=== PATIENT | male | born 1965 | race Caucasian/White ===

== ENCOUNTER 2023-06-09 15:43 | Emergency (ER) | payer OTHER, SELFPAY ==
[2023-06-09 15:52] VITALS: BP 138/92; PULSE 110; RESP 26; TEMP 36.8; O2SAT 92
--- NOTE | 2023-06-09 15:59 | ECG_ITS ---
Measurements Intervals [place] Rate: 106 P: 85 SD: 128 QRS: -81 QRSD: 89 T: 66 QT: 333 QTc: 442 Interpretive Statements SINUS TACHYCARDIA POSSIBLE RIGHT VENTRICULAR CONDUCTION DELAY [RSR (QR) IN V1/V2] LEFT ANTERIOR FASCICULAR BLOCK [QRS AXIS <= -45, QR IN I, RS IN II] NO PREVIOUS ECG AVAILABLE FOR COMPARISON Electronically Signed On 06-09-2023 16:43:53 COUPLES THERAPIST by Erich Larson M.D.
--- NOTE | 2023-06-09 17:16 | PC.NURSE ---
at 1650 spoke with MD dumas about if protocol labs were needed, and MD Dumas stated not until MD lawrence in room.
--- NOTE | 2023-06-09 17:34 | PC.NURSE ---
patient came to desk stating he was going to leave. advised to come back to ER if symptoms get worse.
== END 2023-06-09 18:01 | disposition left against medical advice (07) ==
LOC: ANHED 17:39
PROVIDERS: Emergency Provider Emergency Medicine
DX: R06.02 Shortness of breath (principal)
CPT/HCPCS: 93005; 99199

== ENCOUNTER 2024-09-06 22:04 | Emergency (ER) | payer MEDICAID, SELFPAY ==
--- NOTE | ~2024-09-06 | XR_ITS ---
XR chest 1V portable Ordering provider: Silas Thomas PA-C History: 59 years Male with . CP, SOB . Comparison: July 06, 2024 FINDINGS: MEDIASTINUM: The cardiac silhouette is not enlarged. LUNGS: No infiltrates, effusions or pneumothorax. OTHER: No free air under the diaphragm. IMPRESSION: No acute cardiopulmonary pathology. Reviewed, dictated and finalized at location A.
--- NOTE | 2024-09-06 22:08 | ECG_ITS ---
Test Date: 2024-09-06 22:12:05 Measurements Intervals [place] Rate: 86 P: 78 ND: 158 QRS: -42 QRSD: 94 T: 59 QT: 349 QTc: 418 Interpretive Statements SINUS RHYTHM MARKED LEFT AXIS DEVIATION [QRS AXIS < -30] LOW QRS VOLTAGE [QRS DEFLECTION < 0.5/1.0 mV IN LIMB/CHEST LEADS] ANTEROSEPTAL MYOCARDIAL INFARCTION , PROBABLY RECENT [40+ ms Q WAVE IN V1-V4] ACUTE DE Compared to ECG 07/06/2024 15:18:22 Left-axis deviation now present Myocardial infarct finding still present Electronically Signed On 09-07-2024 14:05:40 CDT by Bucky Plaza M.D.
[2024-09-06 22:09] VITALS: BP 113/90; PULSE 83; RESP 17; TEMP 36.4; O2SAT 100
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
[2024-09-06 22:28] VITALS: O2SAT 100
[2024-09-06 22:30] VITALS: PULSE 82
[2024-09-06 22:30] LABS: Basophils Absolute Auto 0.1 K/mm3 (0.0-0.1); Basophils Percent Auto 0.5 % (0.2-1.2); Eosinophils Absolute Auto 0.2 K/mm3 (0-0.3); Eosinophils Percent Auto 1.6 % (0-4.4); Hemoglobin 11.8 g/dL (14.0-18.0); Immature Granulocyte Absolute 0.05 K/mm3 (0.00-0.031); Immature Granulocyte Percent A 0.5 % (0-0.5); Lymphocytes Absolute Auto 1.77 K/mm3 (0.9-3.2); Mean Corpuscular HGB Conc 30.3 g/dl (32-36); Mean Corpuscular Hemoglobin 24.5 pg (26-34); Mean Corpuscular Volume 81.1 fl (80-100); Mean Platelet Volume 7.9 fl (7.4-10.4); Monocytes Absolute Auto 0.6 K/mm3 (0.1-0.6); Monocytes Percent Auto 5.7 % (2.6-8.5); Neutrophils Absolute Auto 8.4 K/mm3 (1.3-6.7); Neutrophils Percent Auto 75.7 % (45.5-73.1); Platelet Count Result 553 k/mm3 (150-375); Red Blood Count 4.81 M/mm3 (4.6-6.20); Red Cell Distribution Width 14.6 % (11.5-14.5); White Blood Count 11.1 K/mm3 (4.5-10.0)
[2024-09-06] MEDS: ONDANSETRON INJ 4 MG/2 ML VIAL IV PUSH (22:36)
[2024-09-06] MEDS: HYDROmorphone HCL INJ (*CRX) 1 MG/ML SYR 0.5 MG IV PUSH (22:36)
[2024-09-06 22:48] LABS: INR 1.1; Prothrombin Time 14.6 Seconds (11.1-14.7)
[2024-09-06 22:49] LABS: Partial Thromboplastin Time 28.6 Seconds (22.3-36.8)
[2024-09-06 23:49] LABS: Alanine Aminotransferase 21 U/L (6-50); Albumin Level 4.1 g/dL (3.5-5.1); Alkaline Phosphatase 100 U/L (38-126); Anion Gap 13 mmol/L (4-12); Aspartate Amino Transferase 27 U/L (17-59); Bilirubin,Total 0.4 mg/dL (0.2-1.3); Blood Urea Nitrogen 20 mg/dL (9-20); Calcium 9.4 mg/dL (8.4-10.2); Carbon Dioxide 24 mmol/L (22-30); Chloride 104 mmol/L (98-107); Estimated CRCL calculation 60 ml/min; Estimated Glomerular Filt Rate > 60; Glucose 85 mg/dL (65-110); Lipase 35 U/L (23-300); Potassium 4.1 mmol/L (3.4-5.0); Sodium 141 mmol/L (137-145)
[2024-09-07 00:02] LABS: Troponin I < 0.012 ng/mL (0.000-0.034)
--- OUTSIDE RECORDS SUMMARY | 2024-09-07 00:02 | XMS_ITS | Clinical Summary ---
Author Organization [facility] Address [facility] [place] [address] Care Team Providers Care Project Coach Name Role Phone None, Provider MD Primary Care Provider Unavaila ble Allergies No known active allergies Medications ipratropium-alb uterol 0.5-2.5 (3) MG/3ML Solution Take 3 mLs by nebulization every 6 (six) hours as needed. 12 mL 2 Active albuterol sulfate HFA 108 (90 Base) MCG/ACT inhaler Inhale 2 puffs into the lungs every 6 (six) hours as needed for Wheezing. 8 g 2 Active Active Problems Problem Noted Date Diagnosed Date COPD exacerbation ([facility]) 09/30/2021 Family History Medical History Relation Comments Stroke Father Cancer Mother Relation Status Comments Father Mother Social History Tobacco Use Types Packs/Day Years Used Date Smoking Tobacco: Every Day Cigarettes Smokeless Tobacco: Never Tobacco Cessation:Ready to Q uit: Not Asked; Counseling Given: Not Answered Alcohol Use Standard Drinks/Week Comments Yes 0 (1 standard drink = 0.6 oz pur e alcohol) Sex and Gender Information Value Date Recorded Sex Assigned at Not on file Legal Sex Male 9:23 AM INFORMATION TECHNOLOGY ADVISOR Gender Identity Not on file Sexual Orientation Not on file Last Filed Vital Signs Vital Sign Reading Time Taken Comments Blood Pressure 130/95 03/12/2023 8:19 PM CDT Pulse 76 03/12/2023 8:19 PM CDT Temperature 36.8 C (98.2 F) 03/12/2023 8:19 PM CDT Respiratory Rate 16 03/12/2023 8:19 PM CDT Oxygen Saturation 98% 03/12/2023 8:19 PM CDT Inhaled Oxygen Concentration - - Weight 78.1 kg (172 lb 3.2 oz) 10/08/2021 3:30 A M CDT Height 172.7 cm (5' 8 ) 09/30/2021 1:38 AM CDT Body Mass Index 26.18 09/30/2021 1:38 AM CDT Plan of Treatment Health Maintenance Due Date Last Done Comments Colorectal Cancer Screening Colonoscopy (10 Years) 1967 Annual Physical 1970 Pneumococcal Vaccine: Pediat rics (0 to 5 Years) and At-Risk Patients (6 to 64 Years) (1 of 2 - PCV) 1973 Hepatitis C 1985 DTaP, Tdap and Td Vaccines ( 1 - Tdap) 1986 Hepatitis B Vaccines (1 of 3 - 19+ 3-dose series) 1986 Zoster Vaccines (1 of 2) 2017 COVID-19 Vaccine (2023-2 5 season) 2024 Influenza Adult (#1) 2024 Meningococcal B Vaccine Aged Out No l onger eligible based on patient's age to complete this topic Meningococcal Vaccine Aged Out No manuel jonatan eligible based on patient's age to complete this topic RSV Immunizations Under 20 Months Aged Out No longer eligible based on patient's age to complete this topic Goals Goal Patient Goal Type Associated Problems Recent Progress Patient-Stated? Author Patient will return to prior living situation and remain independent in ADLs upon discharge from hospital General Jeri Wei, RN Insurance [facility] Advance Directives * Full Code (Latest Code Status on File) Date Activated Date Inactivated Comments 09/30/2021 5:16 AM 10/09/2021 1:10 AM Care Teams Project Coach Relationship Specialty Start Date End Date None, Provider, PCP - General 08/25/21
--- OUTSIDE RECORDS SUMMARY | 2024-09-07 00:02 | XMS_ITS | Clinical Summary ---
Author Organization [facility] Address [address] [place] [address] Phone Care Team Providers Care Plant Floor Automation Manager Name Role Phone Provider, None Primary Care Provider Unavailabl e Allergies No known active allergies Medications albuterol (PROVENTIL HFA, VENTOLIN HFA) 108 (90 BASE) MCG/ACT Aerosol Solution take 2 Puffs by inhalation every 6 hours as needed for Wheezing. 1 Inhaler 0 6 Active ibuprofen (MOTRIN) 600 MG Tablet Take 1 Tablet by mouth every 6 hours as needed for Moderate or more severe pain or Fever. 30 Tablet 1 Active albuterol 108 (90 Base) MCG/ACT Aerosol Solution take 2 Puffs by inhalation every 4 hours as needed for Wheezing. 18 g 4 Active methylPREDNISol one (MEDROL DOSPACK) 4 MG Tablet Therapy Pack See product package insert for dosing schedule 21 Tablet 4 Active Active Problems Problem Noted Date Diagnosed Date Wheezing 06/22/2016 Encounters Date Type Department Care Team Description 06/24/2024 10:00 PM PUTTY AND PATCH WORKER - 06/25/2024 1:14 AM [facility] Emergency [facility] [address] [place] [address] Brian Solomon MD COPD exacerbation (HCC) Discharge Disposition: Discharged/Transferred to Law Enforcement or Courts 06/24/2024 Travel from Last 3 Months Social History Tobacco Use Types Packs/Day Years Used Date Smoking Tobacco: Every Day Cigarettes Smokeless Tobacco: Never Alcohol Use Standard Drinks/Week Comments Not Currently 0 (1 standard drink = 0.6 oz pur e alcohol) Sex and Gender Information Value Date Recorded Sex Assigned at Not on file Legal Sex Male 12:07 AM CDT Gender Identity Not on file Sexual Orientation Not on file Last Filed Vital Signs Vital Sign Reading Time Taken Comments Blood Pressure 142/88 06/25/2024 1:07 AM P[employer] AND PATCH WORKER Pulse 85 06/25/2024 1:07 AM [employer] AND PATCH WORKER Temperature 37 C (98.6 F) 06/24/2024 10:02 PM [employer] AND PATCH WORKER Respiratory Rate 28 06/25/2024 1:07 AM P[employer]TY AND PATCH WORKER Oxygen Saturation 95% 06/25/2024 1:07 AM P[employer] AND PATCH WORKER Inhaled Oxygen Concentration - - Weight 77.1 kg (170 lb) 06/24/2024 10:02 PM P[employer] AND PATCH WORKER Height 172.7 cm (5' 8 ) 06/24/2024 10:02 PM P[employer] AND PATCH WORKER Body Mass Index 25.85 06/24/2024 10:02 PM P[employer]TY AND PATCH WORKER Plan of Treatment Health Maintenance Due Date Last Done Comments Hepatitis C Virus (HCV) Screening 1967 TdaP Immunization 1967 Hepatitis B Immunization (1 of 3 - 19+ 3-dose series) 1986 Pneumococcal Immunization (5 0+ years) (1 of 2 - PCV) 1986 Colonoscopy 2012 Colorectal Cancer Screening 2012 Cologuard 2017 Immunochemical Fecal Occult Blood 2017 Zoster Immunization (1 of 2) 2017 PSA Discussion 2022 Influenza Immunization (#1) 2024 SARS-COV-2 Immunization ( season) 2024 Respiratory Syncytial Virus (RSV) Immunization (Adult) (1 - 1-dose 75+ series) 2042 Meningococcal Immunization (ACWY) Aged Out No longer eligible based on patient's age to complete this topic Rotavirus Immunization Aged Out No lo nger eligible based on patient's age to complete this topic Procedures Procedure Name Priority Date/Time Associated Diagnosis Comments AEROSOL NEBULIZER-INITIAL STAT 06/24/2024 11:26 PM P[employer] AND PATCH WORKER TROPONIN I, HIGH SENSITIVITY (HSTRP) STAT 06/24/2024 11:22 PM P[employer]TY AND PATCH WORKER XR CHEST SINGLE VIEW PORTABLE STAT 06/24/2024 11:05 PM P[employer]TY AND PATCH WORKER CBC WITH AUTO DIFFERENTIAL STAT 06/24/2024 10:09 PM P[employer] AND PATCH WORKER MAGNESIUM (MG) STAT 06/24/2024 10:09 PM P[employer] AND PATCH WORKER TROPONIN I, HIGH SENSITIVITY (HSTRP) STAT 06/24/2024 10:09 PM P[employer]TY AND PATCH WORKER COMPLETE BLOOD COUNT (CBC) WITH DIFF STAT 06/24/2024 10:09 PM PUTTY AND PATCH WORKER CMP (COMPREHENSIVE METABOLIC PANEL) STAT 06/24/2024 10:09 PM P[employer]TY AND PATCH WORKER EKG 12 LEAD STAT 06/24/2024 10:00 PM P[employer]TY AND PATCH WORKER EKG SCAN 06/24/2024 12:00 AM PUTTY AND PATCH WORKER from Last 3 Months Results * TROPONIN I, HIGH SENSITIVITY (HSTRP) (06/24/2024 11:22 PM PUTTY AND PATCH WORKER) Only the most recent of2 resultswithin the time period is included. TROPONIN I, HIGH SENSITIVITY- [place] 8 <=35 ng/L 06/25/2024 12:03 AM PUTTY AND PATCH WORKER [facility] Comment: High-sensitivity troponin I results are reported in ng/L making the result appear to be 1,000 times higher than the contemporary troponin I value which is reported in ng/ml. Results from [place]. Blood Venipuncture / Unknown 06/24/2024 11:22 PM P[employer]TY AND PATCH WORKER 06/24/2024 11:35 PM PUTTY AND PATCH WORKER us Brian Solomon MD CHEMISTRY ORDERABLES Roslyn l Result [facility] [address] [place] [address] * XR CHEST SINGLE VIEW PORTABLE (06/24/2024 11:05 PM PUTTY AND PATCH WORKER) Anatomical Region Laterality Modality Chest N/A Digital Radiogra phy 06/24/2024 11:4 3 PM P[employer] AND PATCH WORKER Impressions 06/24/2024 11:45 PM P[employer]TY AND PATCH WORKER IMPRESSION: No acute cardiopulmonary abnormality. Narrative 06/24/2024 11:45 PM PUTTY AND PATCH WORKER EXAM DESCRIPTION: XR CHEST SINGLE VIEW PORTABLE REASON FOR STUDY: chest pain today. HX Smoker, COPD TECHNIQUE: Single radiographic view of the chest. COMPARISON: Chest x-ray of February 05, 2019. FINDINGS: LUNGS/PLEURA: No focal consolidation or pneumothorax. No pleural effusion. HEART/MEDIASTINUM: Cardiac silhouette is normal. Remaining mediastinal silhouettes are unremarkable. HARDWARE/LINES/TUBES: EKG leads overlie the film. BONES: No acute findings. THIS IS AN ELECTRONICALLY VERIFIED FINAL REPORT 06/24/2024 11:43 PM - Electronically signed by Jeannie Caraballo M.D. SN: SN Report ID: [id number] Reading Location: [id number] Procedure Note Jeannie Caraballo MD - 06/24/2024 EXAM DESCRIPTION: XR CHEST SINGLE VIEW PORTABLE REASON FOR STUDY: chest pain today. HX Smoker, COPD TECHNIQUE: Single radiographic view of the chest. COMPARISON: Chest x-ray of February 05, 2019. FINDINGS: LUNGS/PLEURA: No focal consolidation or pneumothorax. No pleural effusion. HEART/MEDIASTINUM: Cardiac silhouette is normal. Remaining mediastinal silhouettes are unremarkable. HARDWARE/LINES/TUBES: EKG leads overlie the film. BONES: No acute findings. THIS IS AN ELECTRONICALLY VERIFIED FINAL REPORT 06/24/2024 11:43 PM - Electronically signed by Jeannie Caraballo M.D. SN: SN Report ID: [id number] Reading Location: [id number] IMPRESSION: No acute cardiopulmonary abnormality. Brian Solomon MD IMG DIAGNOSTIC ORDERABLES Final Result * (ABNORMAL) CBC with Auto Differential (06/24/2024 10:09 PM PUTTY AND PATCH WORKER) WBC 6.88 4.00 - 12.00 10(3)/mcL 06/24/2024 10:33 PM [facility] RBC 5.13 4.40 - 5.80 10(6)/[facility] 06/24/2024 10:33 PM [facility] HEMOGLOBIN (HGB) 13.3 13.0 - 16.5 g/dL 06/24/2024 10:33 PM [facility] HEMATOCRIT (HCT) 41.5 38.0 - 50.0 % 06/24/2024 10:33 PM [facility] MCV 80.9(L) 82.0 - 96.0 fL 06/24/2024 10:33 PM [facility] MCH 25.9(L) 26.0 - 32.0 pg 06/24/2024 10:33 PM [facility] MCHC 32.0 31.0 - 36.0 g/dL 06/24/2024 10:33 PM [facility] PLATELET COUNT 386 140 - 440 10(3)/[facility] 06/24/2024 10:33 PM [facility] RDW 14.2 11.8 - 15.5 % 06/24/2024 10:33 PM [facility] MPV 8.9 8.0 - 12.6 fL 06/24/2024 10:33 PM [facility] NEUTROPHILS 66.4 40.0 - 68.0 % 06/24/2024 10:33 PM [facility] LYMPHOCYTES 18.3(L) 19.0 - 49.0 % 06/24/2024 10:33 PM [facility] MONOCYTES 9.6 3.0 - 13.0 % 06/24/2024 10:33 PM [facility] EOSINOPHILS 4.8 0.0 - 8.0 % 06/24/2024 10:33 PM [facility] BASOPHILS 0.9 0.0 - 1.0 % 06/24/2024 10:33 PM [facility] ABSOLUTE NEUTROPHILS 4.57 1.40 - 5.30 10(3)/[facility] 06/24/2024 10:33 PM P[employer]TY AND PATCH WORKER [facility] ABSOLUTE LYMPHOCYTES 1.26 0.90 - 3.30 10(3)/[facility] 06/24/2024 10:33 PM PUTTY AND PATCH WORKER [facility] ABSOLUTE MONOCYTES 0.66 0.10 - 0.90 10(3)/[facility] 06/24/2024 10:33 PM P[employer]TY AND PATCH WORKER [facility] ABSOLUTE EOSINOPHIL 0.33 0.00 - 0.50 10(3)/[facility] 06/24/2024 10:33 PM P[employer]TY AND PATCH WORKER [facility] ABSOLUTE BASOPHILS 0.06 0.00 - 0.10 10(3)/[facility] 06/24/2024 10:33 PM P[employer]TY AND PATCH WORKER [facility] NRBC PER 100 WBC 0 06/24/20 10:33 PM P[employer]TY AND PATCH WORKER [facility] Blood Venipuncture / Unknown 06/24/2024 10:09 PM P[employer] AND PATCH WORKER 06/24/2024 10:30 PM P[employer] AND PATCH WORKER Brian Solomon MD HEMATOLOGY ORDERABLES Fin al Result Performing Organization Address City/[facility]/ZIP Co de Phone Number [facility] [address] [place] [address] * Magnesium (Mg) [id number] (06/24/2024 10:09 PM PUTTY AND PATCH WORKER) MAGNESIUM 1.9 1.6 - 2.6 mg/dL 06/24/2024 10:49 PM P[employer]TY AND PATCH WORKER [facility] Blood Venipuncture / Unknown 06/24/2024 10:09 PM P[employer] AND PATCH WORKER 06/24/2024 10:30 PM P[employer] AND PATCH WORKER Brian Solomon MD CHEMISTRY ORDERABLES Roslyn l Result [facility] [address] [place] [address] * (ABNORMAL) Comprehensive Metabolic Panel (Cmp) [id number] (06/24/2024 10:09 PM PUTTY AND PATCH WORKER) SODIUM 141 136 - 145 mmol/L 06/24/2024 10:49 PM [facility] POTASSIUM 3.8 3.5 - 5.1 mmol/L 06/24/2024 10:49 PM [facility] CHLORIDE 108(H) 98 - 107 mmol/L 06/24/2024 10:49 PM [facility] CO2, VENOUS 22 22 - 30 mmol/L 06/24/2024 10:49 PM [facility] ANION GAP 14.8 <18.0 mmol/L 06/24/2024 10:49 PM [facility] GLUCOSE 117(H) 70 - 99 mg/dL 06/24/2024 10:49 PM [facility] BUN 14 8 - 26 mg/dL 06/24/2024 10:49 PM [facility] CREATININE, BLOOD 0.87 0.70 - 1.30 mg/dL 06/24/2024 10:49 PM [facility] BUN/CREATININE RATIO 16 12 - 20 ratio 06/24/2024 10:49 PM [facility] TOTAL PROTEIN 7.2 6.3 - 8.2 g/dL 06/24/2024 10:49 PM [facility] ALBUMIN 3.6 3.5 - 5.0 g/dL 06/24/2024 10:49 PM [facility] A/G RATIO 1.0 1.0 - 2.2 06/24/2024 10:49 PM [facility] CALCIUM 8.8 8.7 - 10.5 mg/dL 06/24/2024 10:49 PM [facility] T BILI 0.1(L) 0.2 - 1.2 mg/dL 06/24/2024 10:49 PM [facility] SGOT (AST) 21 5 - 34 U/L 06/24/2024 10:49 PM [facility] SGPT (ALT) 16 0 - 55 U/L 06/24/2024 10:49 PM P[employer]TY AND PATCH WORKER [facility] ALKALINE PHOSPHATASE 81 40 - 150 U/L 06/24/2024 10:49 PM P[employer]TY AND PATCH WORKER [facility] GFR, ESTIMATED >60 >=60 06/24/2024 10:49 PM P[employer]TY AND PATCH WORKER [facility] Comment: Creatinine Clearance is the preferred criteria for selecting drug dose adjustments in renally impaired patients. The GFR is provided as additional pertinent clinical information. GFR is reported in mL/min/1.73 sq m. Calculation based on the Chronic Kidney Disease Epidemiology Collaboration (CKD- EPI) equation refit without adjustment for race. GFR, EST. >60 >=60 024 10:49 PM PUTTY AND PATCH WORKER [facility] GFR, EST. NONAFRICAN >60 >=60 06/24/2024 10:49 PM P[employer]TY AND PATCH WORKER [facility] Blood Venipuncture / Unknown 06/24/2024 10:09 PM P[employer]TY AND PATCH WORKER 06/24/2024 10:30 PM P[employer]TY AND PATCH WORKER us Brian Solomon MD CHEMISTRY ORDERABLES Roslyn l Result [facility] [address] [place] [address] * EKG 12 LEAD (06/24/2024 10:00 PM PUTTY AND PATCH WORKER) Ventricular Rate 101 BPM EXTERNAL EKG Atrial Rate 101 BPM EXTERNAL EKG P-R Interval 132 ms EXTERNAL EKG QRS Duration 96 ms EXTERNAL EKG Q-T Duration 338 ms EXTERNAL EKG QTC CALCULATION 438 ms EXTERNAL EKG P [place] 77 degrees EXTERNAL EKG R [place] 262 degrees EXTERNAL EKG T [place] 64 degrees EXTERNAL EKG 06/24/2024 10:0 0 PM P[employer]TY AND PATCH WORKER Impressions EXTERNAL EKG - 06/27/2024 3:59 PM P[employer]TY AND PATCH WORKER Sinus tachycardia Low voltage QRS Inferior infarct , age undetermined Anterolateral infarct , age undetermined Abnormal ECG When compared with ECG of 05-FEB-2019 19:56, No significant change was found ~ Confirmed by DARY CORTES ([id number]) on 06/27/2024 3:59:47 PM Narrative Procedure Note Dary Cortes MD - 06/27/2024 IMPRESSION: Sinus tachycardia Low voltage QRS Inferior infarct , age undetermined Anterolateral infarct , age undetermined Abnormal ECG When compared with ECG of 05-FEB-2019 19:56, No significant change was found ~ Confirmed by DARY CORTES ([id number]) on 06/27/2024 3:59:47 PM us Brian Solomon MD IMG ECG ORDERABLES Final Result EXTERNAL EKG * EKG SCAN (06/24/2024 12:00 AM PUTTY AND PATCH WORKER) 06/24/2024 us Provider Scan IMG ECG ORDERABLES Final Result RESULTING AGENCY from Last 3 Months Additional Health Concerns Infection Onset Date Last Indicated MRSA 03/13/2021 03/13/2021 Insurance [place] [address] [address] Advance Directives * Full Code (Latest Code Status on File) Date Activated Date Inactivated Comments 2016 7:04 PM 07/13/2016 1:47 PM CPR-Full Lauro atment: FULL ARREST: Attempt Resuscitation/CPR wit intubation and mechanical ventilation. PRE-ARREST: Use entire range of life support measures to stabilize the patient. Care Teams Plant Floor Automation Manager Relationship Specialty Start Date End Date Provider, None [place] PCP - General 05/28/17
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
--- OUTSIDE RECORDS SUMMARY | 2024-09-07 00:02 | XMS_ITS | Referral Summary ---
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 This disclosure is being madepursuant to the Care Everywhere program and may not contain all information available regarding this patient. Last updated 18.[facility] Encounters Date Type Department Care Team Description 07/31/2024 8:03 PM [facility] - 08/01/2024 12:10 AM [facility] Emergency ER at [address] [address] Sita Roman MD Cagle, Jonathan S, MD Chest pain, unspecified type (Primary Dx); Leg swelling; Cellulitis of right lower extremity; Positive D dimer Discharge Disposition: Home or Self Care 07/31/2024 Travel from Last 3 Months Allergies No known active allergies Medications * Be aware that medications may not be up to date on this document. Alwaysverify current medications with the patient. Medication Sig Dispensed Refills Start Date End Date Status divalproex ER 24hr (DEPAKOTE ER) 500 MG tablet Take 1 (one) tablet by mouth once daily 30 tablet 01/18/2022 Active Social History Tobacco Use Types Packs/Day Years Used Date Smoking Tobacco: Never Assessed Sex and Gender Information Value Date Recorded Sex Assigned at Not on file Gender Identity Not on file Sexual Orientation Not on file Last Filed Vital Signs Vital Sign Reading Time Taken Comments Blood Pressure 114/82 08/01/2024 12:09 AM [facility] Pulse 71 07/31/2024 8:09 PM [facility] Temperature 36.4 C (97.5 F) 07/31/2024 8:09 PM [facility] Respiratory Rate 20 07/31/2024 8:09 PM [facility] Oxygen Saturation 99% 07/31/2024 9:34 PM [facility] Inhaled Oxygen Concentration - - Weight 72.6 kg (160 lb) 07/31/2024 8:09 PM [facility] Height 172.7 cm (5' 8 ) 07/31/2024 8:09 PM [facility] Body Mass Index 24.33 07/31/2024 8:09 PM [facility] Plan of Treatment Not on file Procedures Procedure Name Priority Date/Time Associated Diagnosis Comments CARDIAC EKG ORDER 08/02/2024 4:0 5 PM [facility] CARDIAC EKG ORDER 08/01/2024 3: 42 PM [facility] TROPONIN-I HIGH SENSITIVE REFLEX 1HOUR Timed 07/31/2024 9:[address] ANGIO CHEST PULM EMBOLISM STAT 07/31/2024 9:46 PM [facility] Chest pain, unspecified type Leg swelling XR CHEST 1VW PORTABLE STAT 07/31/2024 8:43 PM [facility] Chest pain, unspecified type D-DIMER STAT 07/31/2024 8:21 PM [facility] MAGNESIUM BLOOD STAT 07/31/2024 8:20 PM [facility] COMPREHENSIVE METABOLIC PANEL STAT 07/31/2024 8:20 PM [facility] CBC W AUTO DIFFERENTIAL STAT 07/31/2024 8:20 PM [facility] TROPONIN-I HIGH SENSITIVE BASELINE + 1HR STAT 07/31/2024 8:20 PM [facility] EKG 12-LEAD STAT 07/31/2024 8:16 PM [facility] Chest pain, unspecified type from Last 3 Months Results * CARDIAC EKG ORDER (08/02/2024 4:05 PM [facility]) Only the most recent of2 resultswithin the time period is included. Narrative 08/02/2024 4:05 PM [facility] Ordered by an unspecified provider. Scanned Document CARDIAC SERVICES ORD ERABLES * TROPONIN-I HIGH SENSITIVE REFLEX 1HOUR (07/31/2024 9:54 PM [facility]) Troponin I High Sensitive 4 <=35 ng/L 07/31/2024 10:19 PM [facility] Delta Troponin I HS 07/31/2024 10:19 PM [facility] Comment:Delta value intentio shaina not calculated. Baseline to 1 hour specimen collection interval exceeded. Blood BLOOD SPECIMEN / Unknown Venipuncture / Unknown 07/31/2024 9:54 PM [facility] 07/31/2024 9:56 PM [facility] Sita Roman MD LAB - CHEMISTRY ORDE SUSANNE [facility] [address] [place] [address] * CT CHEST PE (07/31/2024 9:46 PM [facility]) Anatomical Region Laterality Modality Chest Computed Tomogra phy 08/01/2024 8:06 AM [facility] Impressions 08/01/2024 8:10 AM [facility] IMPRESSION: No CT evidence of pulmonary embolism. No acute findings within the chest. > Interpreting Provider: Pilo Castellano MD on 08/01/2024 8:10 AM Narrative 08/01/2024 8:10 AM [facility] PROCEDURE: CT ANGIO CHEST PULM EMBOLISM DATE/TIME OF EXAM: 07/31/2024 9:47 PM CLINICAL INFORMATION: None relevant/not provided if blank. Indication: R07.9: Chest pain, unspecified M79.89: Other specified soft tissue disorders Additional History: COMPARISON: 01/18/2022 TECHNIQUE: CT angiography of the chest was performed without IV contrast followed by IV contrast, including 3D post processing CTA image reconstruction. CT angiography of the chest was performed with IV contrast. MIP (maximum intensity projection) images or 3D post processing was performed. CT dose reduction technique was used including Automated Exposure Control CONTRAST: IOPAMIDOL 76 % IV SOLN:80 mL FINDINGS: No central pulmonary embolism. The lungs are clear, no focal or segmental consolidation. There is atelectasis left lung base. No effusions or pneumothorax. The central airways are clear. The heart size is within normal limits. No pericardial effusion. There is a atherosclerotic calcification versus a stent within the left anterior descending artery. The abdominal aorta is nonaneurysmal. No adenopathy within the chest. Included images of the upper abdomen demonstrates no focal hepatic lesions. The adrenal glands, spleen and visualized pancreas are within normal limits. No hydronephrosis in the included kidneys. The bowel in the upper abdomen is within normal limits. Bone windows demonstrate no aggressive osseous lesions. No acute fractures. Procedure Note Pilo Castellano MD - 08/01/2024 PROCEDURE: CT ANGIO CHEST PULM EMBOLISM DATE/TIME OF EXAM: 07/31/2024 9:47 PM CLINICAL INFORMATION: None relevant/not provided if blank. Indication: R07.9: Chest pain, unspecified M79.89: Other specified soft tissue disorders Additional History: COMPARISON: 01/18/2022 TECHNIQUE: CT angiography of the chest was performed without IV contrast followedby IV contrast, including 3D post processing CTA image reconstruction. CT angiography of the chest was performed with IV contrast. MIP (maximum intensity projection) images or 3D post processing was performed. CTdose reduction technique was used including Automated Exposure Control CONTRAST: IOPAMIDOL 76 % IV SOLN:80 mL FINDINGS: No central pulmonary embolism. The lungs are clear, no focal or segmental consolidation. There is atelectasis left lung base. No effusions or pneumothorax. The central airways are clear. The heart size is within normal limits. No pericardial effusion. There marianela atherosclerotic calcification versus a stent within the left anterior descending artery. The abdominal aorta is nonaneurysmal. No adenopathy within the chest. Included images of the upper abdomen demonstrates no focal hepaticlesions. The adrenal glands, spleen and visualized pancreas are within normal limits. No hydronephrosis in the included kidneys. The bowel in theupper abdomen is within normal limits. Bone windows demonstrate no aggressive osseous lesions. No acutefractures. IMPRESSION: No CT evidence of pulmonary embolism. No acute findings within the chest. > Interpreting Provider: Pilo Castellano MD on 08/01/2024 8:10 AM Sita Roman MD CT ORDERABLES * XR CHEST 1VW PORTABLE (07/31/2024 8:43 PM [facility]) Anatomical Region Laterality Modality Chest Radiographic Rafia ging 08/01/2024 8:39 AM [facility] Impressions 08/01/2024 8:39 AM [facility] IMPRESSION: No active disease. > Interpreting Provider: Davidson Hilton MD on 08/01/2024 8:39 AM Narrative 08/01/2024 8:39 AM [facility] PROCEDURE: XR CHEST 1VW PORTABLE DATE/TIME OF EXAM: 07/31/2024 8:44 PM INDICATION: R07.9: Chest pain, unspecified COMPARISON: 2021 ADDITIONAL CLINICAL INFORMATION (if provided): Perform if patient unstable and unable to complete standard PA and LAT Ordering Provider Reason For Exam: Findings: The heart is not enlarged. The aorta is normal in caliber. The lungs are clear. There is no confluent infiltrate or effusion. There is no pneumothorax. There is no mass or adenopathy.. Procedure Note Davidson Hilton MD - 08/01/2024 PROCEDURE: XR CHEST 1VW PORTABLE DATE/TIME OF EXAM: 07/31/2024 8:44 PM INDICATION: R07.9: Chest pain, unspecified COMPARISON: 2021 ADDITIONAL CLINICAL INFORMATION (if provided): Perform if patientunstable and unable to complete standard PA and LAT Ordering Provider Reason For Exam: Findings: The heart is not enlarged. The aorta is normal in caliber. The lungs are clear. There is no confluent infiltrate or effusion. There is no pneumothorax. There is no mass or adenopathy.. IMPRESSION: No active disease. > Interpreting Provider: Davidson Hilton MD on 08/01/2024 8:39 AM Sita Roman MD DIAGNOSTIC IMAGING O RDERABLES * (ABNORMAL) D-DIMER (07/31/2024 8:21 PM [facility]) D-Dimer 1.05(H) 0.27 - 0.50 ug/mL FEU 07/31/2024 8:39 PM [facility] Blood BLOOD SPECIMEN / Unknown Venipuncture / Unknown 07/31/2024 8:21 PM [facility] 07/31/2024 8:24 PM [facility] Narrative [facility] - 07/31/2024 8:39 PM [facility] In the absence of clinical symptoms, a value less than or equal to 0.5 mcg/mL FEU significantly decreases the probability of PE/DVT (negative predictive value >95%). 1 mcg/ml FEU = 1 Fibrinogen Equivalent Unit (approximates 0.5 mcg/mL of D- dimer). Sita Roman MD LAB - COAGULATION OR DERABLES Performing Organization Address [facility]/ZIP Co de Phone Number [facility] [address] [place] [address] * TROPONIN-I HIGH SENSITIVE BASELINE + 1HR (07/31/2024 8:20 PM [facility]) [facility] Troponin I High Sensitive 5 <=35 ng/L 07/31/2024 8:46 PM [facility] Blood BLOOD SPECIMEN / Unknown Venipuncture / Unknown 07/31/2024 8:20 PM [facility] 07/31/2024 8:24 PM [facility] Sita Roman MD LAB - CHEMISTRY ORDE RABLES Performing Organization Address [facility] Co de Phone Number [facility] [address] [place] [address] * (ABNORMAL) CBC W AUTO DIFFERENTIAL (07/31/2024 8:20 PM [facility]) [facility] WBC 12.6(H) 4.0 - 10.7 x10E9/L 07/31/2024 8:27 PM [facility] RBC Count 4.94 4.30 - 5.80 x10E12/L 07/31/2024 8:27 PM [facility] Hemoglobin 12.6(L) 13.3 - 17.5 g/dL 07/31/2024 8:27 PM [facility] Hematocrit 40.1 38.7 - 51.1 % 07/31/2024 8:27 PM [facility] MCV 81.2 80.0 - 98.0 fL 07/31/2024 8:27 PM [facility] MCH 25.5(L) 26.7 - 33.6 pg 07/31/2024 8:27 PM [facility] MCHC 31.4(L) 31.7 - 36.3 g/dL 07/31/2024 8:27 PM [facility] RDW-CV 14.1 11.3 - 14.8 % 07/31/2024 8:27 PM [facility] Platelet Count 611(H) 150 - 420 x10E9/L 07/31/2024 8:27 PM [facility] MPV 8.0 7.8 - 11.4 fL 07/31/2024 8:27 PM [facility] Neutrophil % 72.3 41.0 - 74.0 % 07/31/2024 8:27 PM [facility] Lymphocyte % 16.5(L) 17.0 - 47.0 % 07/31/2024 8:27 PM [facility] Monocyte % 7.5 3.0 - 11.0 % 07/31/2024 8:27 PM [facility] Eosinophil % 2.4 0.0 - 7.0 % 07/31/2024 8:27 PM [facility] Basophil % 0.9 0.0 - 1.6 % 07/31/2024 8:27 PM [facility] Immature Granulocytes % 0.4 0.0 - 1.0 % 07/31/2024 8:27 PM [facility] Neutrophil Absolute 9.09(H) 1.60 - 7.50 x10E9/L 07/31/2024 8:27 PM [facility] Lymphocyte Absolute 2.07 1.00 - 4.40 x10E9/L 07/31/2024 8:27 PM [facility] Monocyte Absolute 0.94 0.15 - 1.00 x10E9/L 07/31/2024 8:27 PM [facility] Eosinophil Absolute 0.30 0.00 - 0.60 x10E9/L 07/31/2024 8:27 PM [facility] Basophil Absolute 0.11 0.00 - 0.13 x10E9/L 07/31/2024 8:27 PM [facility] Blood BLOOD SPECIMEN / Unknown Venipuncture / Unknown 07/31/2024 8:20 PM [facility] 07/31/2024 8:24 PM [facility] Sita Roman MD LAB - HEMATOLOGY ORD ERABLES [facility] [address] [place] [address] * (ABNORMAL) COMPREHENSIVE METABOLIC PANEL (07/31/2024 8:20 PM [facility]) Glucose 101(H) 70 - 99 mg/dL 07/31/2024 8:41 PM [facility] Sodium 139 136 - 145 mmol/L 07/31/2024 8:41 PM [facility] Potassium 4.7 3.5 - 5.1 mmol/L 07/31/2024 8:41 PM [facility] Chloride 104 98 - 107 mmol/L 07/31/2024 8:41 PM [facility] CO2 26 22 - 29 mmol/L 07/31/2024 8:41 PM [facility] Calcium 9.3 8.4 - 10.4 mg/dL 07/31/2024 8:41 PM [facility] Anion Gap 9 6 - 16 mmol/L 07/31/2024 8:41 PM [facility] BUN 14 7 - 26 mg/dL 07/31/2024 8:41 PM [facility] Creatinine 0.93 0.72 - 1.25 mg/dL 07/31/2024 8:41 PM [facility] Alkaline Phosphatase 78 40 - 150 U/L 07/31/2024 8:41 PM [facility] ALT 10 0 - 55 U/L 07/31/2024 8:41 PM [facility] AST 12 5 - 34 U/L 07/31/2024 8:41 PM [facility] Protein Total 8.3 6.4 - 8.3 gm/dL 07/31/2024 8:41 PM [facility] Albumin 2.9(L) 3.4 - 5.0 gm/dL 07/31/2024 8:41 PM [facility] Bilirubin Total 0.2 0.2 - 1.2 mg/dL 07/31/2024 8:41 PM [facility] eGFR by CKD-EPI >90 >=90 mL/min/1.7 3 m2 07/31/2024 8:41 PM [facility] Blood BLOOD SPECIMEN / Unknown Venipuncture / Unknown 07/31/2024 8:20 PM [facility] 07/31/2024 8:24 PM [facility] Sita Roman MD LAB - CHEMISTRY BARRON SKINNER Performing Organization Address [facility]/ZIP Co de Phone Number [facility] [address] [place] [address] * MAGNESIUM BLOOD (07/31/2024 8:20 PM [facility]) Pathologist [facility] Magnesium 2.2 1.6 - 2.6 mg/dL 07/31/2024 8:41 PM [facility] Blood BLOOD SPECIMEN / Unknown Venipuncture / Unknown 07/31/2024 8:20 PM [facility] 07/31/2024 8:24 PM [facility] Sita Roman MD LAB - CHEMISTRY BARR[place] SKINNER Performing Organization Address [facility] Co de Phone Number [facility] [address] [place] [address] * EKG 12-LEAD (07/31/2024 8:16 PM [facility]) Ventricular Rate 71 BPM [facility] Atrial Rate 71 BPM [facility] P-R Interval 152 ms [facility] QRS Duration ms 90 ms [facility] Q-T Interval ms 384 ms [facility] QTC Calculation (Bezet) 417 ms [facility] Calculated P Drift 84 degrees [facility] Calculated R Drift 78 degrees [facility] Calculated T Drift 78 degrees [facility] Interpretation EKG Normal sinus rhythm Low voltage QRS Cannot rule out Anterior infarct , age undetermined Abnormal ECG No previous ECGs available Confirmed by LANDEN SWAIN MD ([id number]) on 08/02/2024 12:19:27 PM [facility] 07/31/2024 8:16 PM [facility] 08/02/2024 12:19 PM [facility] Sita Roman MD ECG ORDERABLES [facility] from Last 3 Months Guarantor Name Account Type Relation to Patient Date of Phone Billing Address Mark Melchor Personal/Family Self 1965 [id number] [place] [address] Mark Melchor Personal/Family Self 1965 [address] [place] [address]
--- OUTSIDE RECORDS SUMMARY | 2024-09-07 00:02 | XMS_ITS | Patient Health Summary ---
Author Organization [facility] Address [address] [place] [address] Care Team Providers Care Business Education Professor Name Role Phone Unavailable Primary Care Provider Unavailabl e Note from [facility] [place],non-owned Affiliates and Associated Physician Practices is amultiple site organization consisting of ambulatory clinics and hospital sitesin [place], [place], [place] and [place]. This disclosure is being madepursuant to the Care Everywhere program and may not contain all information available regarding this patient. Last updated 18.[facility] Allergies No known active allergies Medications * Be aware that medications may not be up to date on this document. Alwaysverify current medications with the patient. * divalproex ER 24hr (DEPAKOTE ER) 500 MG tablet(Started 01/18/2022) Take 1 (one) tablet by mouth once daily Social History Tobacco Use Types Packs/Day Years Used Date Smoking Tobacco: Never Assessed Sex and Gender Information Value Date Recorded Sex Assigned at Not on file Gender Identity Not on file Sexual Orientation Not on file Last Filed Vital Signs Vital Sign Reading Time Taken Comments Blood Pressure 114/82 08/01/2024 12:09 AM BURR GRINDER Pulse 71 07/31/2024 8:09 PM BURR GRINDER Temperature 36.4 C (97.5 F) 07/31/2024 8:09 PM BURR GRINDER Respiratory Rate 20 07/31/2024 8:09 PM BURR GRINDER Oxygen Saturation 99% 07/31/2024 9:34 PM BURR GRINDER Inhaled Oxygen Concentration - - Weight 72.6 kg (160 lb) 07/31/2024 8:09 PM BURR GRINDER Height 172.7 cm (5' 8 ) 07/31/2024 8:09 PM BURR GRINDER Body Mass Index 24.33 07/31/2024 8:09 PM BURR GRINDER Procedures * CARDIAC EKG ORDER(Performed 08/02/2024) * CARDIAC EKG ORDER(Performed 08/01/2024) * TROPONIN-I HIGH SENSITIVE REFLEX 1HOUR(Performed 07/31/2024) * CT ANGIO CHEST PULM EMBOLISM(Performed 07/31/2024) Performed for Chest pain, unspecified type, Leg swelling * XR CHEST 1VW PORTABLE(Performed 07/31/2024) Performed for Chest pain, unspecified type * D-DIMER(Performed 07/31/2024) * MAGNESIUM BLOOD(Performed 07/31/2024) * COMPREHENSIVE METABOLIC PANEL(Performed 07/31/2024) * CBC W AUTO DIFFERENTIAL(Performed 07/31/2024) * TROPONIN-I HIGH SENSITIVE BASELINE + 1HR(Performed 07/31/2024) * EKG 12-LEAD(Performed 07/31/2024) Performed for Chest pain, unspecified type * CARDIAC EKG ORDER(Performed 01/19/2022) * CT ANGIO CHEST PULM EMBOLISM(Performed 01/18/2022) Performed for Chest pain, unspecified type * D-DIMER(Performed 01/18/2022) * TROPONIN I(Performed 01/18/2022) * CT HEAD CERV SPINE WO CONTRAST(Performed 01/18/2022) Performed for Altered mental status, unspecified altered mental status type * TROPONIN I(Performed 01/18/2022) * EKG 12-LEAD(Performed 01/18/2022) Performed for Chest pain, unspecified type * ALCOHOL ETHYL BLOOD(Performed 01/17/2022) * TROPONIN I(Performed 01/17/2022) * COMPREHENSIVE METABOLIC PANEL(Performed 01/17/2022) * CBC W AUTO DIFFERENTIAL(Performed 01/17/2022) * XR CHEST 1VW PORTABLE(Performed 01/17/2022) Performed for Chest pain, unspecified type Results * CARDIAC EKG ORDER (08/02/2024 4:05 PM BURR GRINDER) Only the most recent of3 resultswithin the time period is included. Narrative 08/02/2024 4:05 PM BURR GRINDER Ordered by an unspecified provider. Scanned Document CARDIAC SERVICES ORD ERABLES * TROPONIN-I HIGH SENSITIVE REFLEX 1HOUR (07/31/2024 9:54 PM BURR GRINDER) [facility] Troponin I High Sensitive 4 <=35 ng/L 07/31/2024 10:19 PM BURR GRINDER [facility] Delta Troponin I HS 07/31/2024 10:19 PM BURR GRINDER [facility] Comment:Delta value intentio shaina not calculated. Baseline to 1 hour specimen collection interval exceeded. Blood BLOOD SPECIMEN / Unknown Venipuncture / Unknown 07/31/2024 9:54 PM BURR GRINDER 07/31/2024 9:56 PM BURR GRINDER Sita Roman MD LAB - CHEMISTRY [place] [facility] Organization Address City/State/ZIP Co de Phone Number [facility] [address] [place] [address] * CT CHEST PE (07/31/2024 9:46 PM BURR GRINDER) Only the most recent of2 resultswithin the time period is included. Anatomical Region Laterality Modality Chest Computed Tomogra phy 08/01/2024 8:06 AM B[facility]R GRINDER Impressions 08/01/2024 8:10 AM BURR GRINDER IMPRESSION: No CT evidence of pulmonary embolism. No acute findings within the chest. > Interpreting Provider: Pilo Castellano MD on 08/01/2024 8:10 AM Narrative 08/01/2024 8:10 AM BURR GRINDER PROCEDURE: CT ANGIO CHEST PULM EMBOLISM DATE/TIME [...] XR CHEST 1VW PORTABLE (07/31/2024 8:43 PM BURR GRINDER) Only the most recent of2 resultswithin the time period is included. Anatomical Region Laterality Modality Chest Radiographic Rafia ging 08/01/2024 8:39 AM BURR GRINDER Impressions 08/01/2024 8:39 AM BURR GRINDER IMPRESSION: No active disease. > Interpreting Provider: Davidson Hilton MD on 08/01/2024 8:39 AM Narrative 08/01/2024 8:39 AM BURR GRINDER PROCEDURE: XR CHEST 1VW PORTABLE DATE/TIME OF [...] RDERABLES * (ABNORMAL) D-DIMER (07/31/2024 8:21 PM BURR GRINDER) Only the most recent of2 resultswithin the time period is included. D-Dimer 1.05(H) 0.27 - 0.50 ug/mL FEU 07/31/2024 8:39 PM [facility] Blood BLOOD SPECIMEN / Unknown Venipuncture / Unknown 07/31/2024 8:21 PM BURR GRINDER 07/31/2024 8:24 PM BURR GRINDER Narrative [facility] - 07/31/2024 8:39 PM BURR GRINDER In the absence of clinical symptoms, a value less than or equal to 0.5 mcg/mL FEU significantly decreases the probability of PE/DVT (negative predictive value >95%). 1 mcg/ml FEU = 1 Fibrinogen Equivalent Unit (approximates 0.5 mcg/mL of D- dimer). Sita Roman MD LAB - COAGULATION OR DERABLES Performing Organization Address [facility]/ZIP Co de Phone Number [facility] [address] [place] [address] * TROPONIN-I HIGH SENSITIVE BASELINE + 1HR (07/31/2024 8:20 PM BURR GRINDER) [facility] Troponin I High Sensitive 5 <=35 ng/L 07/31/2024 8:46 PM BURR GRINDER [facility] Blood BLOOD SPECIMEN / Unknown Venipuncture / Unknown 07/31/2024 8:20 PM BURR GRINDER 07/31/2024 8:24 PM BURR GRINDER Sita Roman MD LAB - CHEMISTRY ORDE RABLES Performing Organization Address [facility] Co de Phone Number [facility] [address] [place] [address] * (ABNORMAL) CBC W AUTO DIFFERENTIAL (07/31/2024 8:20 PM BURR GRINDER) Only the most recent of2 resultswithin the time period is included. [facility] WBC 12.6(H) 4.0 - 10.7 x10E9/L 07/31/2024 8:27 PM [facility] RBC Count 4.94 4.30 - 5.80 x10E12/L 07/31/2024 8:27 PM [facility] Hemoglobin 12.6(L) 13.3 - 17.5 g/dL 07/31/2024 8:27 PM [facility] Hematocrit 40.1 38.7 - 51.1 % 07/31/2024 8:27 PM [facility] MCV 81.2 80.0 - 98.0 fL 07/31/2024 8:27 PM [facility] MCH 25.5(L) 26.7 - 33.6 pg 07/31/2024 8:27 PM [facility] MCHC 31.4(L) 31.7 - 36.3 g/dL 07/31/2024 8:27 PM [facility] RDW-CV 14.1 11.3 - 14.8 % 07/31/2024 8:27 PM [facility] Platelet Count 611(H) 150 - 420 x10E9/L 07/31/2024 8:27 PM [facility] MPV 8.0 7.8 - 11.4 fL 07/31/2024 8:27 PM [facility] Neutrophil % 72.3 41.0 - 74.0 % 07/31/2024 8:27 PM [facility] Lymphocyte % 16.5(L) 17.0 - 47.0 % 07/31/2024 8:27 PM [facility] Monocyte % 7.5 3.0 - 11.0 % 07/31/2024 8:27 PM [facility] Eosinophil % 2.4 0.0 - 7.0 % 07/31/2024 8:27 PM [facility] Basophil % 0.9 0.0 - 1.6 % 07/31/2024 8:27 PM [facility] Immature Granulocytes % 0.4 0.0 - 1.0 % 07/31/2024 8:27 PM [facility] Neutrophil Absolute 9.09(H) 1.60 - 7.50 x10E9/L 07/31/2024 8:27 PM [facility] Lymphocyte Absolute 2.07 1.00 - 4.40 x10E9/L 07/31/2024 8:27 PM [facility] Monocyte Absolute 0.94 0.15 - 1.00 x10E9/L 07/31/2024 8:27 PM [facility] Eosinophil Absolute 0.30 0.00 - 0.60 x10E9/L 07/31/2024 8:27 PM [facility] Basophil Absolute 0.11 0.00 - 0.13 x10E9/L 07/31/2024 8:27 PM [facility] Blood BLOOD SPECIMEN / Unknown Venipuncture / Unknown 07/31/2024 8:20 PM B[facility]R GRINDER 07/31/2024 8:24 PM [facility] Sita Roman MD LAB - HEMATOLOGY ORD ERABLES [facility] [address] [place] [id number] * (ABNORMAL) COMPREHENSIVE METABOLIC PANEL (07/31/2024 8:20 PM [facility]) Only the most recent of2 resultswithin the time period is included. Glucose 101(H) 70 - 99 mg/dL 07/31/2024 8:41 PM [facility] Sodium 139 136 - 145 mmol/L 07/31/2024 8:41 PM [facility] Potassium 4.7 3.5 - 5.1 mmol/L 07/31/2024 8:41 PM [facility] Chloride 104 98 - 107 mmol/L 07/31/2024 8:41 PM [facility] CO2 26 22 - 29 mmol/L 07/31/2024 8:41 PM [facility] Calcium 9.3 8.4 - 10.4 mg/dL 07/31/2024 8:41 PM [facility] Anion Gap 9 6 - 16 mmol/L 07/31/2024 8:41 PM [facility] BUN 14 7 - 26 mg/dL 07/31/2024 8:41 PM [facility] Creatinine 0.93 0.72 - 1.25 mg/dL 07/31/2024 8:41 PM [facility] Alkaline Phosphatase 78 40 - 150 U/L 07/31/2024 8:41 PM [facility] ALT 10 0 - 55 U/L 07/31/2024 8:41 PM [facility] AST 12 5 - 34 U/L 07/31/2024 8:41 PM [facility] Protein Total 8.3 6.4 - 8.3 gm/dL 07/31/2024 8:41 PM [facility] Albumin 2.9(L) 3.4 - 5.0 gm/dL 07/31/2024 8:41 PM [facility] Bilirubin Total 0.2 0.2 - 1.2 mg/dL 07/31/2024 8:41 PM [facility] eGFR by CKD-EPI >90 >=90 mL/min/1.7 3 m2 07/31/2024 8:41 PM [facility] Blood BLOOD SPECIMEN / Unknown Venipuncture / Unknown 07/31/2024 8:20 PM B[facility]R GRINDER 07/31/2024 8:24 PM [facility] Sita Roman MD LAB - CHEMISTRY [place] Performing Organization Address [facility] Co de Phone Number [facility] [address] [place] [address] * MAGNESIUM BLOOD (07/31/2024 8:20 PM BURR GRINDER) [facility] Magnesium 2.2 1.6 - 2.6 mg/dL 07/31/2024 8:41 PM [facility] GR[facility]ER [facility] Blood BLOOD SPECIMEN / Unknown Venipuncture / Unknown 07/31/2024 8:20 PM [facility] GRINDER 07/31/2024 8:24 PM [facility]ER Sita Roman MD LAB - CHEMISTRY [place] Performing Organization Address [facility] de Phone Number [facility] [address] [place] [address] * EKG 12-LEAD (07/31/2024 8:16 PM BURR GRINDER) Only the most recent of2 resultswithin the time period is included. Ventricular Rate 71 BPM [facility] Atrial Rate 71 BPM [facility] P-R Interval 152 ms [facility] QRS Duration ms 90 ms [facility] Q-T Interval ms 384 ms [facility] QTC Calculation (Bezet) 417 ms [facility] Calculated P [place] 84 degrees [facility] Calculated R [place] 78 degrees [facility] Calculated T [place] 78 degrees [facility] Interpretation EKG Normal sinus rhythm Low voltage QRS Cannot rule out Anterior infarct , age undetermined Abnormal ECG No previous ECGs available Confirmed by LANDEN SWAIN MD ([id number]) on 08/02/2024 12:19:27 PM [facility] 07/31/2024 8:16 PM B[facility]R GR[facility]ER 08/02/2024 12:19 PM [facility] GRINDER Sita Roman MD ECG ORDERABLES [facility] * TROPONIN I (01/18/2022 6:11 AM CDT) Only the most recent of3 resultswithin the time period is included. Troponin I <0.010 <0.038 ng/mL 01/18/2022 6:38 AM CDT [facility] Blood BLOOD SPECIMEN / Unknown Venipuncture / Unknown 01/18/2022 6:11 AM CDT 01/18/2022 6:17 AM CDT Sergei Wang DO LAB - CHEMISTRY ORDERABLES Performing Organization Address [facility] Co de Phone Number [facility] [address] [phone] * CT HEAD CERV SPINE WO CONTRAST (01/18/2022 4:31 AM CDT) Anatomical Region Laterality Modality Head Computed Tomogra phy 01/18/2022 7:31 AM CDT Impressions 01/18/2022 7:33 AM CDT 1. No acute intracranial process. 2. No evidence of acute fracture in the cervical spine. 3. Paranasal sinus disease. *Reading Radiologist: Dannie Ibrahim on 01/18/2022 at 7:33 AM Narrative 01/18/2022 7:33 AM CDT EXAMINATION: 1. Computed tomography (CT) of the head without contrast 2. CT of the cervical spine without contrast HISTORY: Altered mental status, unspecified TECHNIQUE: CT of the head and cervical spine were performed without contrast according to standard protocol. FINDINGS: No prior study is available for comparison at the time of this dictation. Head: No acute intra- or extra-axial fluid collections are identified. The ventricles are of normal size, shape, and morphology. The basilar cisterns are patent. No mass effect or midline shift is seen. The hoang-white matter differentiation is normal. Other than mild paranasal sinus disease, the visualized portions of the orbits, paranasal sinuses, and mastoids appear normal. No acute fracture is identified. Cervical spine: The alignment is normal. Vertebral bodies are normal in height without evidence of acute fracture. The craniocervical junction is normal. Mild multilevel degenerative disc and joint disease is seen. There is anterior spinal fusion noted at C5-C6. Procedure Note Dannie Ibrahim MD - 01/18/2022 EXAMINATION: 1. Computed tomography (CT) of the head without contrast 2. CT of the cervical spine without contrast HISTORY: Altered mental status, unspecified TECHNIQUE: CT of the head and cervical spine were performed without contrast according to standard protocol. FINDINGS: No prior study is available for comparison at the time of this dictation. Head: No acute intra- or extra-axial fluid collections are identified. The ventricles are of normal size, shape, and morphology. The basilar cisterns are patent. No mass effect or midline shift is seen. The hoang-white matter differentiation is normal. Other than mild paranasal sinus disease, the visualized portions of the orbits, paranasal sinuses, and mastoids appear normal. No acute fracture is identified. Cervical spine: The alignment is normal. Vertebral bodies are normal in height without evidence of acute fracture. The craniocervical junction is normal. Mild multilevel degenerative disc and joint disease is seen. There is anterior spinal fusion noted at C5-C6. IMPRESSION 1. No acute intracranial process. 2. No evidence of acute fracture in the cervical spine. 3. Paranasal sinus disease. *Reading Radiologist: Dannie Ibrahim on 01/18/2022 at 7:33 AM Radha Juárez MD CT ORDERABLES * ALCOHOL ETHYL BLOOD (01/17/2022 10:53 PM CDT) Ethanol <10.0 <10 mg/dL 01/18/2022 3:03 AM CDT [facility] Ethanol Calculated <0.010 <=0.100 gm/dL 01/18/2022 3:03 AM CDT [facility] Blood BLOOD SPECIMEN / Unknown Venipuncture / Unknown 01/17/2022 10:53 PM CDT 01/17/2022 10:56 PM CDT Narrative [facility] - 01/18/2022 3:03 AM CDT Non Legal Serum Alcohol Radha Juárez MD LAB - CHEMISTRY [place] [facility] Organization Address City/State/ZIP Co de Phone Number [facility] [address] [place] [address]
--- OUTSIDE RECORDS SUMMARY | 2024-09-07 00:02 | XMS_ITS | Referral Summary ---
Author Organization [facility] Address [address] [place] [address] Care Team Providers Care Senior Computer Specialist Name Role Phone No, Physician Primary Care Provider [phone] Encounters Date Type Department Care Team Description 07/07/2024 Orders Only [facility] Cardiology [address] [place] [address] Bucky Plaza MD from Last 3 Months Allergies No known active allergies Medications albuterol [...] (LAD) coronary artery 12/29/2023 Acute anterior wall [place] 12/29/2023 Opioid withdrawal 05/10/2018 Moderate persistent asthma [...] patient will need admission to the new [facility] program, a a consult with doctor Sotomayor who suggested transferring the patient under new [facility] program services after medically stablized Assessment & Plan (12/19/2017 3:07 AM CDT): The patient with chronic heroin use He is going to start rehab in 2 days Will start on Librium for anxiety and withdrawal symptoms Polysubstance (excluding opioids) dependence, da cindy use Assessment & Plan (03/13/2024 3:09 AM CDT): Regularly uses fentanyl and previously amphetamines. Was placed recently on methadone. Pending UDS this admission. - WHO - monitor for signs of withdrawal Resolved Problems Problem Noted Date Diagnosed Date Resolved Date ST elevation myocardial infarction (STEMI) 12/26/2023 03/13/2024 NSTEMI (non-ST elevated myoc ardial infarction) 12/26/2023 03/13/2024 Social History Tobacco Use Types Packs/Day Years Used Date Smoking Tobacco: Heavy Smoker Cigarettes 1 40 Smokeless Tobacco: Never Tobacco Cessation:Ready to Q uit: No; Counseling Given: No Alcohol Use Standard Drinks/Week Comments No 0 (1 standard drink = 0.6 oz pur e alcohol) [facility] Utilities Answer Date Recorded In the past 12 months has [employer] electric, gas, oil, or water company threatened to [...] often do you attend chur ch or faith services? More than 4 times per year 01/03/2024 Do you belong to any clubs o r organizations such as sikhism groups, unions, fraternal or athletic groups, or [...] any time in the past 12 m [facility], were you homeless or living in a snf (including now)? 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 Gender Identity Not on file Sexual Orientation [...] 04/25/2024 2:35 AM CDT Plan of Treatment Not on file Medical Devices Implanted Type Area Traffic Control Officer Device Identifier Shelf Expiration Date Model / Serial / Lot [employer] Yunier Synergy Xd Monorail 3mm 16mm 144cm Delivery System 1 Access Port [id number] - [id number] Implanted:Qty: 1 on 12/29/2023 by Rodolfo Rudd MD at [facility] Stent [employer] Yunier 11/24/2024 [id number] / / [id number] [employer] Yunier Synergy Xd Monorail 3mm 20mm 144cm Delivery System 1 Access Port [id number] - [id number] Implanted:Qty: 1 on 12/29/2023 by Rodolfo Rudd MD at [facility] Stent [employer] Yunier 07/05/2025 [id number] / / [id number] [employer] Yunier Angio-Seal Vip 6fr Closere Device [id number] - [id number] Implanted:Qty: 1 on 12/29/2023 by Rodolfo Rudd MD at [facility] Vascular Closure Device [employer] 08/29/2024 [id number] / / [id number] Steel Plate With Screws Neck Description:Steel plate with 4 screw in neck related fusion of C5-C6 Procedures Procedure Name Priority Date/Time Associated Diagnosis Comments CARDIOLOGY DOCUMENT SCAN Routine 07/06/2024 1:37 PM CLIENT SERVICE ASSOCIATE HEPATITIS PANEL, ACUTE Add-On 01/26/2018 10:46 AM CDT from Last 3 Months or Most Recently Relevant to Health Maintenance Results * Cardiology Document Scan (07/06/2024 1:37 PM CLIENT SERVICE ASSOCIATE) Anatomical Region Laterality Modality Other Bucky Plaza MD CV CARDIAC SERVICES PROCEDURES F inal Result * Hepatitis panel, acute (01/26/2018 10:46 AM CDT) Hep A IgM Negative Negative [facility] ([place]) Comment:Testing performed by : [facility], [address] [place] [address]., [id number] Hep B core IgM Negative Negative [facility] ([facility]) Comment:Testing performed by : [facility], [address] [place] [address]., [id number] Hep C Ab Negative Negative [facility] ([facility]) Comment:Testing performed by : [facility], [address] [place] [address], [id number] HepBsAg Negative Negative [facility] ([facility]) Comment:Testing performed by : [facility], [address] [place] [address], [id number] Blood specimen (specimen) 01/26/2018 10:46 AM CDT 01/26/2018 2:56 PM CDT Narrative [facility] ([facility]) - 01/26/2018 4:52 PM CDT Luis Ontiveros MD LAB MICROBIOLOGY - GENERAL ORDER SOURAV Final Result [facility] ([facility]) 1 [facility] Department [place] [address] from Last 3 Months or Most Recently Relevant to Health Maintenance Insurance [facility] MEDICAID [facility] IDPA [facility] IDPA Advance Directives For more information, please contact: [phone] * Full Code (Latest Code Status on [...] 6:46 PM 01/03/2024 5:07 AM Care Teams Senior Computer Specialist Relationship Specialty Start Date End Date No, Physician PCP - General 12/31/16
--- OUTSIDE RECORDS SUMMARY | 2024-09-07 00:02 | XMS_ITS | Clinical Summary ---
Author Organization [facility] Address [address] [place] [address] Care Team Providers Care Lands Resource Manager Name Role Phone Unavailable Primary Care Provider Unavailabl e Source Comments [facility],non-owned Affiliates and Associated Physician Practices is amultiple site organization consisting of ambulatory clinics and hospital sitesin [place], [place], [place] and [place]. This disclosure is being madepursuant to the Care Everywhere program and may not contain all information available regarding this patient. Last updated 18.[facility] Allergies No known active allergies Medications * Be aware that medications may not be up to date on this document. Alwaysverify current medications with the patient. Medication Sig Dispensed Refills Start Date End Date Status divalproex ER 24hr (DEPAKOTE ER) 500 MG tablet Take 1 (one) tablet by mouth once daily 30 tablet 01/18/2022 Active Encounters Date Type Department Care Team Description 07/31/2024 8:03 PM DENTAL CERAMIST - 08/01/2024 12:10 AM [facility] Emergency ER at [address] [address] Sita Roman MD Cagle, Jonathan S, MD Chest pain, unspecified type (Primary Dx); Leg swelling; Cellulitis of right lower extremity; Positive D dimer Discharge Disposition: Home or Self Care 07/31/2024 Travel from Last 3 Months Social History Tobacco Use Types Packs/Day Years Used Date Smoking Tobacco: Never Assessed Sex and Gender Information Value Date Recorded Sex Assigned at Not on file Gender Identity Not on file Sexual Orientation Not on file Last Filed Vital Signs Vital Sign Reading Time Taken Comments Blood Pressure 114/82 08/01/2024 12:09 AM DENTAL CERAMIST Pulse 71 07/31/2024 8:09 PM DENTAL CERAMIST Temperature 36.4 C (97.5 F) 07/31/2024 8:09 PM DENTAL CERAMIST Respiratory Rate 20 07/31/2024 8:09 PM DENTAL CERAMIST Oxygen Saturation 99% 07/31/2024 9:34 PM DENTAL CERAMIST Inhaled Oxygen Concentration - - Weight 72.6 kg (160 lb) 07/31/2024 8:09 PM DENTAL CERAMIST Height 172.7 cm (5' 8 ) 07/31/2024 8:09 PM DENTAL CERAMIST Body Mass Index 24.33 07/31/2024 8:09 PM DENTAL CERAMIST Plan of Treatment Health Maintenance Due Date Last Done Comments COLOGUARD (AGES 45-75) - COL ON CA SCREENING 1967 COLON MONITORING 1967 COLONOSCOPY - COLON CA SCREENING 1967 CT COLONOGRAPHY - COLON CA SCREENING 1967 Colorectal Cancer Screening 1967 FIT - COLON CA SCREENING 1967 FLEX SIG - COLON CA SCREENING 1967 LIPID TESTING 1967 HIV SCREENING 1982 HEPATITIS C SCREENING 07/06/1985 DTAP/TDAP/TD VACCINES (1 - Tdap) 1986 HEPATITIS B VACCINE (1 of 3 - 19+ 3-dose series) 1986 PNEUMOCOCCAL VACCINE 50+ (1 of 1 - PCV) 2017 ZOSTER VACCINE (1 of 2) 2017 COVID-19 VACCINE (2023-2 5 season) 2024 INFLUENZA VACCINE (#1) 2024 DEPRESSION SCREENING 06/28/2024 HIB VACCINE Aged Out No longer eligi ble based on patient's age to complete this topic HPV VACCINE Aged Out No longer eligi ble based on patient's age to complete this topic MENINGOCOCCAL (Group B) VACC INE SHARED DECISION-MAKING Aged Out No longer eligibl e based on patient's age to complete this topic MENINGOCOCCAL GROUPS A/C/Y/W VACCINE Aged Out No longer eligible b ased on patient's age to complete this topic Procedures Procedure Name Priority Date/Time Associated Diagnosis Comments CARDIAC EKG ORDER 08/02/2024 4:0 5 PM DENTAL CERAMIST CARDIAC EKG ORDER 08/01/2024 3:4 2 PM DENTAL CERAMIST TROPONIN-I HIGH SENSITIVE REFLEX 1HOUR Timed 07/31/2024 9:[address] ANGIO CHEST PULM EMBOLISM STAT 07/31/2024 9:46 PM DENTAL CERAMIST Chest pain, unspecified type Leg swelling XR CHEST 1VW PORTABLE STAT 07/31/2024 8:43 PM DENTAL CERAMIST Chest pain, unspecified type D-DIMER STAT 07/31/2024 8:21 PM DENTAL CERAMIST MAGNESIUM BLOOD STAT 07/31/2024 8:20 PM DENTAL CERAMIST COMPREHENSIVE METABOLIC PANEL STAT 07/31/2024 8:20 PM DENTAL CERAMIST CBC W AUTO DIFFERENTIAL STAT 07/31/2024 8:20 PM DENTAL CERAMIST TROPONIN-I HIGH SENSITIVE BASELINE + 1HR STAT 07/31/2024 8:20 PM DENTAL CERAMIST EKG 12-LEAD STAT 07/31/2024 8:16 PM DENTAL CERAMIST Chest pain, unspecified type from Last 3 Months Results * CARDIAC EKG ORDER (08/02/2024 4:05 PM DENTAL CERAMIST) Only the most recent of2 resultswithin the time period is included. Narrative 08/02/2024 4:05 PM DENTAL CERAMIST Ordered by an unspecified provider. Scanned Document CARDIAC SERVICES ORD ERABLES * TROPONIN-I HIGH SENSITIVE REFLEX 1HOUR (07/31/2024 9:54 PM DENTAL CERAMIST) Troponin I High Sensitive 4 <=35 ng/L 07/31/2024 10:19 PM DENTAL CERAMIST [facility] Delta Troponin I HS 07/31/2024 10:19 PM DENTAL CERAMIST [facility] Comment:Delta value intentio shaina not calculated. Baseline to 1 hour specimen collection interval exceeded. Blood BLOOD SPECIMEN / Unknown Venipuncture / Unknown 07/31/2024 9:54 PM DENTAL CERAMIST 07/31/2024 9:56 PM DENTAL CERAMIST Sita Roman MD LAB - CHEMISTRY [place] [facility] Organization Address City/State/ZIP Co de Phone Number [facility] [address] [place] [address] * CT CHEST PE (07/31/2024 9:46 PM DENTAL CERAMIST) Anatomical Region Laterality Modality Chest Computed Tomogra phy 08/01/2024 8:06 AM DENTAL CERAMIST Impressions 08/01/2024 8:10 AM DENTAL CERAMIST IMPRESSION: No CT evidence of pulmonary embolism. No acute findings within the chest. > Interpreting Provider: Pilo Castellano MD on 08/01/2024 8:10 AM Narrative 08/01/2024 8:10 AM DENTAL CERAMIST PROCEDURE: CT ANGIO CHEST PULM EMBOLISM DATE/TIME [...] XR CHEST 1VW PORTABLE (07/31/2024 8:43 PM DENTAL CERAMIST) Anatomical Region Laterality Modality Chest Radiographic Rafia ging 08/01/2024 8:39 AM DENTAL CERAMIST Impressions 08/01/2024 8:39 AM DENTAL CERAMIST IMPRESSION: No active disease. > Interpreting Provider: Davidson Hilton MD on 08/01/2024 8:39 AM Narrative 08/01/2024 8:39 AM DENTAL CERAMIST PROCEDURE: XR CHEST 1VW PORTABLE DATE/TIME OF [...] RDERABLES * (ABNORMAL) D-DIMER (07/31/2024 8:21 PM DENTAL CERAMIST) [facility] D-Dimer 1.05(H) 0.27 - 0.50 ug/mL FEU 07/31/2024 8:39 PM DENTAL CERAMIST [facility] Blood BLOOD SPECIMEN / Unknown Venipuncture / Unknown 07/31/2024 8:21 PM DENTAL CERAMIST 07/31/2024 8:24 PM DENTAL CERAMIST Narrative [facility] - 07/31/2024 8:39 PM DENTAL CERAMIST In the absence of clinical symptoms, a value less than or equal to 0.5 mcg/mL FEU significantly decreases the probability of PE/DVT (negative predictive value >95%). 1 mcg/ml FEU = 1 Fibrinogen Equivalent Unit (approximates 0.5 mcg/mL of D- dimer). Sita Roman MD LAB - COAGULATION OR DERABLES [facility] [address] [place] [address] * TROPONIN-I HIGH SENSITIVE BASELINE + 1HR (07/31/2024 8:20 PM DENTAL CERAMIST) Troponin I High Sensitive 5 <=35 ng/L 07/31/2024 8:46 PM [facility] Blood BLOOD SPECIMEN / Unknown Venipuncture / Unknown 07/31/2024 8:20 PM DENTAL CERAMIST 07/31/2024 8:24 PM DENTAL CERAMIST Sita Roman MD LAB - CHEMISTRY [place] [facility] Organization Address City/State/ZIP Co de Phone Number [facility] [address] [place] [address] * (ABNORMAL) CBC W AUTO DIFFERENTIAL (07/31/2024 8:20 PM DENTAL CERAMIST) Pathologist [facility] WBC 12.6(H) 4.0 - 10.7 x10E9/L 07/31/2024 8:27 PM [facility] RBC Count 4.94 4.30 - 5.80 x10E12/L 07/31/2024 8:27 PM [facility] Hemoglobin 12.6(L) 13.3 - 17.5 g/dL 07/31/2024 8:27 PM [facility] Hematocrit 40.1 38.7 - 51.1 % 07/31/2024 8:27 PM [facility] MCV 81.2 80.0 - 98.0 fL 07/31/2024 8:27 PM [facility] MCH 25.5(L) 26.7 - 33.6 pg 07/31/2024 8:27 PM [facility] MCHC 31.4(L) 31.7 - 36.3 g/dL 07/31/2024 8:27 PM [facility] RDW-CV 14.1 11.3 - 14.8 % 07/31/2024 8:27 PM [facility] Platelet Count 611(H) 150 - 420 x10E9/L 07/31/2024 8:27 PM [facility] MPV 8.0 7.8 - 11.4 fL 07/31/2024 8:27 PM [facility] Neutrophil % 72.3 41.0 - 74.0 % 07/31/2024 8:27 PM [facility] Lymphocyte % 16.5(L) 17.0 - 47.0 % 07/31/2024 8:27 PM [facility] Monocyte % 7.5 3.0 - 11.0 % 07/31/2024 8:27 PM [facility] Eosinophil % 2.4 0.0 - 7.0 % 07/31/2024 8:27 PM [facility] Basophil % 0.9 0.0 - 1.6 % 07/31/2024 8:27 PM [facility] Immature Granulocytes % 0.4 0.0 - 1.0 % 07/31/2024 8:27 PM [facility] Neutrophil Absolute 9.09(H) 1.60 - 7.50 x10E9/L 07/31/2024 8:27 PM [facility] Lymphocyte Absolute 2.07 1.00 - 4.40 x10E9/L 07/31/2024 8:27 PM [facility] Monocyte Absolute 0.94 0.15 - 1.00 x10E9/L 07/31/2024 8:27 PM [facility] Eosinophil Absolute 0.30 0.00 - 0.60 x10E9/L 07/31/2024 8:27 PM [facility] Basophil Absolute 0.11 0.00 - 0.13 x10E9/L 07/31/2024 8:27 PM [facility] Blood BLOOD SPECIMEN / Unknown Venipuncture / Unknown 07/31/2024 8:20 PM DENTAL CERAMIST 07/31/2024 8:24 PM [facility] Sita Roman MD LAB - HEMATOLOGY ORD ERABLES [facility] [address] [place] [address] * (ABNORMAL) COMPREHENSIVE METABOLIC PANEL (07/31/2024 8:20 PM [facility]) [facility] Glucose 101(H) 70 - 99 mg/dL 07/31/2024 8:41 PM [facility] Sodium 139 136 - 145 mmol/L 07/31/2024 8:41 PM [facility] Potassium 4.7 3.5 - 5.1 mmol/L 07/31/2024 8:41 PM [facility] Chloride 104 98 - 107 mmol/L 07/31/2024 8:41 PM [facility] CO2 26 22 - 29 mmol/L 07/31/2024 8:41 PM [facility] Calcium 9.3 8.4 - 10.4 mg/dL 07/31/2024 8:41 PM [facility] Anion Gap 9 6 - 16 mmol/L 07/31/2024 8:41 PM [facility] BUN 14 7 - 26 mg/dL 07/31/2024 8:41 PM [facility] Creatinine 0.93 0.72 - 1.25 mg/dL 07/31/2024 8:41 PM [facility] Alkaline Phosphatase 78 40 - 150 U/L 07/31/2024 8:41 PM [facility] ALT 10 0 - 55 U/L 07/31/2024 8:41 PM [facility] AST 12 5 - 34 U/L 07/31/2024 8:41 PM [facility] Protein Total 8.3 6.4 - 8.3 gm/dL 07/31/2024 8:41 PM [facility] Albumin 2.9(L) 3.4 - 5.0 gm/dL 07/31/2024 8:41 PM [facility] Bilirubin Total 0.2 0.2 - 1.2 mg/dL 07/31/2024 8:41 PM [facility] eGFR by CKD-EPI >90 >=90 mL/min/1.7 3 m2 07/31/2024 8:41 PM [facility] Blood BLOOD SPECIMEN / Unknown Venipuncture / Unknown 07/31/2024 8:20 PM DENTAL CERAMIST 07/31/2024 8:24 PM [facility] Sita Roman MD LAB - CHEMISTRY [place] [facility] [address] [place] [address] * MAGNESIUM BLOOD (07/31/2024 8:20 PM [facility]) [facility] Magnesium 2.2 1.6 - 2.6 mg/dL 07/31/2024 8:41 PM [facility] Blood BLOOD SPECIMEN / Unknown Venipuncture / Unknown 07/31/2024 8:20 PM DENTAL CERAMIST 07/31/2024 8:24 PM DENTAL CERAMIST Sita Roman MD LAB - CHEMISTRY [facility] [facility] [address] [place] [address] * EKG 12-LEAD (07/31/2024 8:16 PM DENTAL CERAMIST) Ventricular Rate 71 BPM [facility] Atrial Rate 71 BPM [facility] P-R Interval 152 ms [facility] QRS Duration ms 90 ms [facility] Q-T Interval ms 384 ms [facility] QTC Calculation (Bezet) 417 ms [facility] Calculated P [place] 84 degrees [facility] Calculated R [place] 78 degrees [facility] Calculated T [place] 78 degrees [facility] Interpretation EKG Normal sinus rhythm Low voltage QRS Cannot rule out Anterior infarct , age undetermined Abnormal ECG No previous ECGs available Confirmed by LANDEN SWAIN MD ([id number]) on 08/02/2024 12:19:27 PM [facility] 07/31/2024 8:16 PM DENTAL CERAMIST 08/02/2024 12:19 PM DENTAL CERAMIST Sita Roman MD ECG ORDERABLES Performing Organization Address [facility] Co de Phone Number [facility] from Last 3 Months Guarantor Name Account Type Relation to Patient Date of Phone Billing Address Mark Melchor Personal/Family Self 1965 [id number] [place] [address] Mark Melchor Personal/Family Self 1965 [address] [place] [address]
--- OUTSIDE RECORDS SUMMARY | 2024-09-07 00:02 | XMS_ITS | Continuity of Care Document ---
Author Name Libia Parham Address [address] [place], [place] [id number] [place] [address] Organization Unknown Address [address] [place], [place] [id number] [place] [address] Medications No known medications Problems No known problems
--- OUTSIDE RECORDS SUMMARY | 2024-09-07 00:02 | XMS_ITS | Continuity of Care Document ---
Author Name Libia Parham Address [address] [facility] [place] [address] Organization Unknown Address [address] [place], [place] [id number] [place] [address] Medications No known medications Problems No known problems
--- NOTE | 2024-09-07 01:20 | ECG_ITS ---
Test Date: 2024-09-07 01:31:16 Measurements Intervals [place] Rate: 77 P: 78 UT: 139 QRS: -44 QRSD: 103 T: 66 QT: 385 QTc: 436 Interpretive Statements SINUS RHYTHM MARKED LEFT AXIS DEVIATION [QRS AXIS < -30] INCOMPLETE RIGHT BUNDLE BRANCH BLOCK LOW QRS VOLTAGE [QRS DEFLECTION < 0.5/1.0 mV IN LIMB/CHEST LEADS] ANTEROSEPTAL MYOCARDIAL INFARCTION , PROBABLY RECENT Compared to ECG 09/06/2024 22:12:05 No significant changes Electronically Signed On 09-08-2024 16:34:28 CDT by Erich Larson M.D.
[2024-09-07 01:33] VITALS: BP 106/81; PULSE 80; RESP 15; O2SAT 98
--- NOTE | 2024-09-07 01:52 | PC.NURSE ---
energy and conservation technician's meliza and dewey went into pt room to draw 3 hour troponin. Pt was stuck a second time after one successful attempt, pt became irate and began cussing at the two tod's. Pt also lunged and screamed in dewey's face very aggressively. This RN then entered the room and pt was yelling saying I'm fucking leaving you guys have fucking 3rd graders trying draw blood This RN notified pt that we must remove his IV's before he leaves. Pt then left the room and started walking down the [place], this RN and chargemaster specialist Mary notified the pt that the police will be called if he leaves the facility with the IV's still in place. Pt then turned around walked back and aggressively got in this RN's face and said well get them the fuck out then . Pt's was encouraging the pt to stay and the pt started threatening her as well stating to his if you don't stop your gonna end up in here This RN removed both IV's from pt and him and his ambulated out of the IV.
== END 2024-09-07 02:40 | disposition left against medical advice (07) ==
PROVIDERS: Emergency Provider Physician Assistant
DX: R07.9 Chest pain, unspecified (principal); F17.210 Nicotine dependence, cigarettes, uncomplicated; I45.10 Unspecified right bundle-branch block; R94.31 Abnormal electrocardiogram [ECG] [EKG]
CPT/HCPCS: 36415; 71045; 80053; 83690; 84484; 85025; 85610; 85730; 93005; 96374; 96375; 99284; J1171; J2405